=== PATIENT | female | born 1995 | race African-American/Black ===

== ENCOUNTER 2019-03-23 17:18 | Emergency (ER) | payer BC ==
[2019-03-23 17:51] VITALS: BP 117/73
--- NOTE | 2019-03-23 18:11 | UC ---
Lower Extremity/Ankle HPI - HPI Summary HPI Summary: BILATERAL LOWER LEG AND KNEE PAIN. PAIN FOR ABOUT 10 DAYS. PT WAS SEEN AT [facility] ON 03/20 AND WAS DX WITH BLOOM SPLINTS. LATER THAT DAY PT BUMPED HER LEFT HEEL ON A BED FRAME. PAIN HAS BEEN WORSE SINCE - History of Current Complaint Chief Complaint: UCLowerExtremity Stated Complaint: BILAT LEG PAIN/LEFT ANKLE PAIN Time Seen by Provider: 03/23/19 17:29 Hx Obtained From: Patient Hx Last Menstrual Period: 03/20/19 ?: No Onset/Duration: Sudden Onset, Lasting Weeks Severity Initially: Severe Severity Currently: Severe Pain Intensity: 12 Aggravating Factor(s): Standing, Ambulation Alleviating Factor(s): Rest Able to Bear Weight: Yes - Allergies/Home Medications Allergies/Adverse Reactions: Allergies Allergy/AdvReac Type Severity Reaction Status Date / Time No Known Allergies Allergy Verified 03/23/19 17:32 Home Medications: Home Medications Albuterol HFA INHALER* [Ventolin HFA Inhaler*] 2 puff INH Q4H PRN 03/23/19 [ History Confirmed 03/23/19] Divalproex Sodium [Depakote ER] 500 mg PO DAILY 03/23/19 [History Confirmed ] Ibuprofen TAB* [Advil TAB*] 400 mg PO Q6H PRN 03/23/19 [History Confirmed ] Norgestrel-Ethinyl Estradiol [[id number] Tablet] 1 each PO DAILY 03/23/19 [ History Confirmed 03/23/19] Propranolol TAB* [Inderal TAB*] 20 mg PO QID PRN 03/23/19 [History Confirmed ] Sertraline* [Zoloft*] 100 mg PO DAILY 03/23/19 [History Confirmed 03/23/19] PMH/Surg Hx/FS Hx/Imm Hx - Surgical History Surgical History: Yes Surgery Procedure, Year, and Place: T&A - Social History Alcohol Use: Occasionally Substance Use Type: Marijuana Smoking Status (MU): Never Smoked Tobacco Physical Exam Vital Signs: Initial Vital Signs Temp 99 F 03/23/19 17:38 Pulse 72 03/23/19 17:38 Resp 18 03/23/19 17:38 BP 117/73 03/23/19 17:38 Pulse Ox 100 03/23/19 17:38 Lower Extremity Course/Dx - Course Course Of Treatment: hx obtained, exam performed ,meds reviewed, xray wet read is negative, educated on stretching and care f bloom splints, and contusions - Differential Dx/Diagnosis Differential Diagnosis/HQI/PQRI: Contusion, Sprain, Strain Provider Diagnosis: Anterior bloom splints, Contusion of ankle or foot, left Discharge - Sign-Out/Discharge Documenting (check all that apply): Patient Departure All imaging exams completed and their final reports reviewed: No Studies - Discharge Plan Condition: Stable Disposition: HOME Patient Education Materials: Bloom Splints (ED) Referrals: Lino Atkins MD [Primary Care Provider] - Additional Instructions: 1. Heat, soak in epsom salts, stretch the front of your legs daily 2. You can use ibuprofen or aleve ( naproxen sodium) for pain and inflammation of your legs. 3. FOllow up as needed. - Billing Disposition and Condition Condition: STABLE Disposition: Home
== END 2019-03-23 18:59 | disposition home or self-care (01) ==
LOC: UCCORT 17:18
DX: S86.891A Other injury of other muscle(s) and tendon(s) at lower leg level, right leg, initial encounter (principal); S86.892A Other injury of other muscle(s) and tendon(s) at lower leg level, left leg, initial encounter; X58.XXXA Exposure to other specified factors, initial encounter; Y92.9 Unspecified place or not applicable; S90.02XA Contusion of left ankle, initial encounter; S90.32XA Contusion of left foot, initial encounter; W22.03XA Walked into furniture, initial encounter
CPT/HCPCS: 99201; G0463

== ENCOUNTER 2019-04-21 09:30 | Emergency (ER) | payer BC ==
[2019-04-21 09:48] VITALS: BP 129/57
--- NOTE | 2019-04-21 10:07 | UC ---
Ear Complaint HPI - HPI Summary HPI Summary: 24 year old female presents with left ear pain and drainage over the past two days. She notes pain radiating to her anterior auricular region. Denies associated fever chills nor sweats. Has had some dizziness, no n/ v/d. No uri symptoms nor exacerbation of her asthma. - History of Current Complaint Chief Complaint: UCEar Stated Complaint: RIGHT EAR CONCERN Time Seen by Provider: 04/21/19 09:46 Hx Obtained From: Patient Hx Last Menstrual Period: current ?: No Onset/Duration: Sudden Onset, Lasting Days - 2 Pain Intensity: 9 - Allergies/Home Medications Allergies/Adverse Reactions: Allergies Allergy/AdvReac Type Severity Reaction Status Date / Time No Known Allergies Allergy Verified 04/21/19 09:44 PMH/Surg Hx/FS Hx/Imm Hx Previously Healthy: Yes Respiratory History: Asthma - well controlled, uses albuterol prn, last time ~ 10 days ago. Psychological History: Depression - following with outpatient mental health, states symptoms are well controlled at this time. - Surgical History Surgical History: Yes Surgery Procedure, Year, and Place: T&A - Family History Known Family History: Positive: Hypertension Family History: mother with Phillips's Anema. Siblings with Asthma. - Social History Alcohol Use: Occasionally Substance Use Type: Marijuana Substance Use Comment - Amount & Last Used: every other day Smoking Status (MU): Never Smoked Tobacco Review of Systems All Other Systems Reviewed And Are Negative: Yes Constitutional: Positive: Negative Skin: Positive: Negative Eyes: Positive: Negative ENT: Positive: Other - Right ear pain, see HPI. Respiratory: Positive: Negative Cardiovascular: Positive: Negative Gastrointestinal: Positive: Negative Genitourinary: Positive: Negative Motor: Positive: Negative Neurovascular: Positive: Negative Musculoskeletal: Positive: Negative Neurological: Positive: Other - Dizziness Psychological: Positive: Depressed - being treated, denies si nor hi. Physical Exam Triage Information Reviewed: Yes Appearance: Well-Appearing Vital Signs: Initial Vital Signs Temp 97.8 F 04/21/19 09:45 Pulse 81 04/21/19 09:45 Resp 16 04/21/19 09:45 BP 129/57 04/21/19 09:45 Pulse Ox 100 04/21/19 09:45 Vital Signs Reviewed: Yes Eye Exam: Normal ENT: Positive: TMs normal, Other - Left ear canal normal. Right ear canal swollen with clear discharge. Tenderness of right pinna with retraction. Mild tenderness left anterior auicular region to palpation. Neck: Positive: Supple, Nontender, No Lymphadenopathy Respiratory: Positive: Lungs clear, Normal breath sounds, No respiratory distress Cardiovascular: Positive: RRR, No Murmur Abdominal Exam: Normal Ear Complaint Course/Dx - Course Course Of Treatment: Findings consistent with right otitis externa, no visible TM rupture on exam. - Differential Dx/Diagnosis Provider Diagnosis: Otitis externa Discharge - Sign-Out/Discharge Documenting (check all that apply): Patient Departure All imaging exams completed and their final reports reviewed: No Studies - Discharge Plan Condition: Stable Disposition: HOME Prescriptions: Ciproflox/Dexameth OTIC.SUSP* [Ciprodex OTIC.SUSP*] 4 drop RIGHT EAR BID 7 Days #1 btl Patient Education Materials: Otitis Externa (ED) Referrals: Lino Atkins MD [Primary Care Provider] - Additional Instructions: Use ear drops as directed. May use over the counter ibuprofen as needed for ear pain. Follow-up with Primary Care Provider or Urgent Care if symptoms persist or worsen. - Billing Disposition and Condition Condition: STABLE Disposition: Home
== END 2019-04-21 10:11 | disposition home or self-care (01) ==
LOC: UCCORT 09:30
DX: H60.92 Unspecified otitis externa, left ear (principal)
CPT/HCPCS: 99212; G0463

== ENCOUNTER 2019-09-15 14:02 | Emergency (ER) | payer BC ==
--- OUTSIDE RECORDS SUMMARY | 2019-09-15 14:08 | XMS REPORT | Summary of Care ---
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 31-JUL-2018 18:32, : NO SIGNIFICANT CHANGE WAS FOUND : Confirmed by Griffin Chen ([id number]) on 08/31/2019 10:29:21 : AM Performing Organization Address City/State/Zipcode Phone Number [facility] EKG 1ED EKG Interpretation (08/30/2019 6:44 PM EST) Narrative Performed At Charles Nuñez MD EXTERNAL NON-INTERFACED LAB 08/31/2019 10:30 AM 1ED EKG Interpretation Date/Time: 08/30/2019 6:58 PM Performed by: Charles Nuñez MD Authorized by: Charles Nuñez MD ECG reviewed by ED Physician in the absence of a clothing supervisor: yes Previous ECG: Previous ECG: Compared to current Comparison ECG info: aug 13 Similarity: No change Interpretation: Interpretation: normal Rate: ECG rate: 88 ECG rate assessment: normal Rhythm: Rhythm: sinus rhythm Ectopy: Ectopy: none QRS: QRS axis: Normal QRS intervals: Normal Conduction: Conduction: normal ST segments: ST segments: Normal T waves: T waves: normal Performing Organization Address [facility] Phone Number EXTERNAL NON-INTERFACED LAB Comprehensive Metabolic Panel (08/30/2019 6:40 PM EST) Albumin 4.2 3.5 - 5.2 g/dL [facility] at Bilirubin, Total 0.3 <1.2 mg/dL [facility] Calcium 9.3 8.6 - 10.0 mg/dL [facility] Chloride 104 98 - 107 mmol/L [facility] Creatinine 0.71 0.50 - 0.90 [facility] mg/dL [facility] at Glucose 91 70 - 140 mg/dL [facility] Alkaline Phosphatase 57 35 - 104 U/L [facility] Potassium 3.9 3.4 - 5.1 mmol/L [facility] Total Protein 7.2 6.4 - 8.3 g/dL [facility] Sodium 136 136 - 145 mmol/L [facility] AST/SGO 21 <32 U/L [facility] Blood Urea Nitrogen 13 6 - 20 mg/dL [facility] Osmolality, Lionel 282 275 - 300 [facility] mosm/kg [facility] at BUN/Cre Ratio 18 [facility] Bicarbonate 23 22 - 29 mmol/L [facility] ALT/SGP 20 <33 U/L [facility] Anion Gap 9 8 - 15 mmol/L [facility] A/G Ratio 1.0 [facility] GFR Non >90 >60 [facility] Venezuelan 2008 CDK-EPI mL/min/1.73m2 Univ at GFR >90 >60 [facility] 2009 CKD-EPI mL/min/1.73m2 Univ at Specimen Plasma Performing Organization Address [facility] Phone Number [facility] AT [place] [address] [place] [address] [phone] [facility] [address] [address] TSH (08/30/2019 6:40 PM EST) TSH 1.020 0.270 - 4.200 u[IU]/mL [facility] Specimen Plasma Performing Organization Address City/[facility] Phone Number [facility] AT [address] [address] [phone] [facility] [address] [address] Toxicology Hold (08/30/2019 6:40 PM EST) Toxicology hold TOXT sample [facility] received in [facility] Univ at Specimen Plasma Performing Organization Address City/[facility] Phone Number [facility] AT [address] [address] [phone] [facility] [address] [address] T4 (08/30/2019 6:40 PM EST) Thyroxine 6.0 4.5 - 11.7 ug/dl [facility] Specimen Plasma Performing Organization Address City/[facility] Phone Number [facility] AT [address] [address] [phone] [facility] at [address] [address] Salicylate level (08/30/2019 6:40 PM EST) Salicylate <1.0 (L) 3.0 - 30.0 mg/dL [facility] Specimen Plasma Performing Organization Address City/[facility] Phone Number [facility] AT [address] [address] [facility] [address] [address] Ethyl Alcohol Level (08/30/2019 6:40 PM EST) Ethyl Alcohol Negative Negative g/dl [facility] at Specimen Plasma Performing Organization Address [facility] Phone Number [facility] AT [address] [address] [facility] [address] [address] CBC and Differential (08/30/2019 6:40 PM EST) White Blood Cell 6.9 4 - 10 [facility] 10*3/uL Medical Univ at Red Blood Cell 5.00 4.1 - 5.3 [facility] 10*6/uL Medical Univ at Hemoglobin 11.5 11.5 - 15.5 [facility] g/dL Medical Univ at Hematocrit 35.8 (L) 36 - 45 % [facility] at Mean Cell Volume 71.6 (L) 80 - 96 fL [facility] Mean Cell Hemoglobin 23.0 (L) 27 - 33 pg [facility] Mean Cell Hgb Conc 32.1 32.0 - 36.0 [facility] g/dL [facility] at Red Cell Dist Width 15.4 (H) 11.5 - 14.5 % [facility] Platelet Count 400 150 - 400 [facility] 10*3/uL Medical [facility] at Differential Type Automated Diff [facility] Neutrophil 53 % [facility] Lymphocyte 36 % [facility] Monocyte 9 % [facility] Eosinophil 1 % [facility] Basophil 1 % [facility] Abs Neutrophil 3.75 1.8 - 7.0 [facility] 10*3/uL Medical Univ at Abs Lymphocyte 2.49 1.2 - 4.0 [facility] 10*3/uL Medical Univ at Abs Monocyte 0.59 0 - 0.8 [facility] 10*3/uL Medical Univ at Abs Eosinophil 0.06 0 - 0.5 [facility] 10*3/uL Medical Univ at Abs Basophil 0.03 0 - 0.2 [facility] 10*3/uL Medical Univ at Nucleated Red Blood 0 0 - 0 [facility] Cells /100{WBCs} Medical [facility] at Specimen EDTA Whole Blood Performing Organization Address City/State/Zipcode Phone Number [facility] AT [facility] [address] [place] [address] [facility] [address] [place] [address] Acetaminophen, Random (08/30/2019 6:40 PM EST) Acetaminophen, Random 11.9 10.0 - 30.0 [facility] ug/mL Univ at CG Specimen Plasma Performing Organization Address City/State/Zipcode Phone Number [facility] AT [facility] [address] [place] [address] [phone] [facility] at CG [address] [place] [address] documented in this encounter Visit Diagnoses Diagnosis Depression, unspecified depression type Class 3 severe obesity due to excess calories without serious comorbidity with body mass index (BMI) of 50.0 to 59.9 in adult Asthma without acute exacerbation Benign essential HTN Essential hypertension, benign documented in this encounter Administered Medications Medication Order MAR Action Action Date Dose Rate Site acetaminophen (TYLENOL) tablet Given 09/02/2019 9:17 PM EST 650 mg 650 mg 650 mg, Oral, Every 6 hours PRN, Mild Pain (Pain Scale Score 1-3), Starting 08/31/19 at 0056, For 30 days, Maximum daily dose of acetaminophen is 3,000 mg from all sources in 24 hours., Given 08/31/2019 8:05 AM EST 650 mg Alum & Mag Hydroxide-Simeth (MAALOX PLUS) 200-200-20 MG/5ML suspension 30 mL 30 mL, Oral, Every 6 hours PRN, Indigestion, Starting 08/31/19 at 0056, For 30 days divalproex (DEPAKOTE) 24 hr tablet 500 mg Given 09/03/2019 9:35 AM EST 500 mg 500 mg, Oral, Daily Standard, First dose on 09/02/19 at 0900, For 30 days, Do not crush or chew, Given 09/02/2019 9:44 AM EST 500 mg hydrOXYzine (ATARAX) tablet 50 mg 50 mg, Oral, Every 6 hours PRN, Anxiety, Starting 08/31/19 at 0056, For 30 days ibuprofen (ADVIL,MOTRIN) tablet 400 mg Given 09/01/2019 8:47 PM EST 400 mg 400 mg, Oral, Every 8 hours PRN, Moderate Pain (Pain Scale Score 4-6), Starting 09/01/19 at 1821, For 30 days, Take with food., magnesium hydroxide (MILK OF MAGNESIA) 400 MG/5ML suspension 15 mL 15 mL, Oral, Daily PRN, Constipation, Starting 08/31/19 at 0056, For 30 days , If serum creatinine > 2 notify provider before administering., propranolol (INDERAL) tablet 20 mg Given 09/01/2019 8:47 PM EST 20 mg 20 mg, Oral, 2 Times Daily, First dose on 08/31/19 at 0900, For 30 days, Check vital signs before administering, Given 08/31/2019 9:06 PM EST 20 mg sertraline (ZOLOFT) tablet 100 mg Given 09/03/2019 9:35 AM EST 100 mg 100 mg, Oral, Daily Standard, First dose on 08/31/19 at 0900, For 30 days Given 09/02/2019 9:44 AM EST 100 mg Given 09/01/2019 7:41 AM EST 100 mg trazodone (DESYREL) tablet 50 mg 50 mg, Oral, Nightly PRN, Sleep, Starting 08/31/19 at 0056, For 30 days Medication Order MAR Action Action Date Dose Rate Site influenza vac split quad Given 08/31/2019 8:03 AM 0.5 mLs Left Deltoid (FLUARIX) injection 6 EST months and older 0.5 mL 0.5 mL, Intramuscular, Give Now, Starting 08/31/19 at 0900, For 1 dose documented in this encounter
--- OUTSIDE RECORDS SUMMARY | 2019-09-15 14:08 | XMS REPORT | Summary of Care ---
:1995 Author Organization [facility] Address [address] [place] [address] Care Team Providers Name Role Phone iLno Atkins MD Primary Care Provider Reason for Visit Reason Comments New Patient Encounter Details Date Type Department Care Team Description 09/12/2019 Office Visit Psychiatry Faculty Meri Real NP [facility], [id number] [place] [phone] Allergies Active Allergy Reactions Severity Noted Date Comments Hlhj-K1-Uuucqdmb-Vinegar Medium 09/12/2019 documented as of this encounter (statuses as of 09/13/2019) Medications Medication Sig Dispensed Refills Start Date End Date Status ALBUTEROL IN Inhale into the 0 Active lungs. ibuprofen Take 200 mg by 0 Active (ADVIL,MOTRIN) 200 MG mouth every 6 tablet (six) hours as needed for Pain. fluticasone (FLONASE) 1 spray by Nasal 0 Active 50 MCG/ACT nasal spray route daily. imbanikz-gnasoudhkj-za Four times 0 Active lymyxin (NEOSPORIN) daily. ophthalmic ointment Fexofenadine HCl Take by mouth. 0 Active (MUCINEX ALLERGY PO) norgestrel-ethinyl Take 1 tablet by 28 tablet 5 01/02/2019 Active estradiol (LO/OVRAL) mouth daily 0.3-30 MG-MCG per tablet divalproex (DEPAKOTE) Take 500 mg by 0 Active 500 MG EC tablet mouth daily propranolol (INDERAL) Take 20 mg by 0 Active 20 MG tablet mouth as needed Sertraline HCl 50 MG Take 2 tablets 60 tablet 0 09/03/2019 10/03/2019 Active Oral Tablet (ZOLOFT) by mouth daily documented as of this encounter (statuses as of 09/13/2019) Active Problems Problem Noted Date Post traumatic stress disorder (PTSD) 09/13/2019 Depression 09/02/2019 Class 3 severe obesity due to excess calories without serious comorbidity 03/2019 with body mass index (BMI) of 50.0 to 59.9 in adult Asthma without acute exacerbation 08/31/2019 Benign essential HTN 08/31/2019 Depression with suicidal ideation 08/30/2019 documented as of this encounter (statuses as of 09/13/2019) Immunizations Name Administration Dates Next Due Influenza Quad IM Pres Free (0.5 mL dose) 08/31/2019 documented as of this encounter Social History Tobacco Use Types Packs/Day Years Used Date Never Smoker 0 Smokeless Tobacco: Never Used Comments: marijuana Alcohol Use Drinks/Week oz/Week Comments Yes 3x a month socially Social Isolation Answer Date Recorded In a typical week, how many times do you talk on the Twice a week 08/31/2019 phone with family, friends, or neighbors? How often do you get together with friends or relatives? Never 08/31/2019 How often do you attend mormon or anabaptist services? Never 08/31/2019 Do you belong to any clubs or organizations such as Yes 08/31/2019 mormon groups, unions, fraternal or athletic groups, or [...] Sign Reading Time Taken Comments Blood Pressure 134/69 09/12/2019 2:46 PM EST Pulse 93 09/12/2019 2:46 PM EST Temperature - - Respiratory Rate - - Oxygen Saturation 98% 09/12/2019 2:46 PM EST Inhaled Oxygen Concentration - - Weight 127 kg (280 lb) 09/12/2019 2:46 PM EST Height 160 cm (5' 3") 09/12/2019 2:46 PM EST Body Mass Index 49.6 09/12/2019 2:46 PM EST documented in this encounter Plan of Treatment Date Type Specialty Care Team Description 10/03/2019 Office Visit Psychiatry Meri Real, [employer] [address] [place] [address] [phone] Health Maintenance Due Date Last Done Comments [...] this topic documented as of this encounter Results Not on filedocumented in this encounter Visit Diagnoses Diagnosis Moderate episode of recurrent major depressive disorder - Primary Anxiety Anxiety state, unspecified Post traumatic stress disorder (PTSD) Posttraumatic stress disorder documented in this encounter
[2019-09-15 14:17] VITALS: BP 127/49
--- NOTE | 2019-09-15 14:39 | UC ---
Lower Extremity/Ankle HPI - HPI Summary HPI Summary: 24-year-old female presents with complaints of nontraumatic left foot pain for the past 3-4 days. Pain is located at the plantar and lateral aspect of her left foot. States no pain at rest however has pain with any type of walking or weightbearing. No alleviating factors and has not tried any vqgt-asp-ppxmzts analgesics. Denies erythema, ecchymosis, edema, lesions, numbness, or tingling. - History of Current Complaint Chief Complaint: UCLowerExtremity Stated Complaint: LEFT FOOT PAIN Time Seen by Provider: 09/15/19 14:04 Hx Obtained From: Patient Hx Last Menstrual Period: 08/29/19 Pain Intensity: 4 - Allergies/Home Medications Allergies/Adverse Reactions: Allergies Allergy/AdvReac Type Severity Reaction Status Date / Time No Known Allergies Allergy Verified 09/15/19 14:16 PMH/Surg Hx/FS Hx/Imm Hx Cardiovascular History: Hypertension Respiratory History: Asthma Psychological History: Depression - Surgical History Surgical History: Yes Surgery Procedure, Year, and Place: T&A, ~2003, [place] - Family History Known Family History: Positive: Hypertension Family History: mother with Phillips's Anema. Siblings with Asthma. - Social History Lives: With Family Alcohol Use: Occasionally Substance Use Type: Marijuana Substance Use Comment - Amount & Last Used: "every few days" Smoking Status (MU): Never Smoked Tobacco Review of Systems All Other Systems Reviewed And Are Negative: Yes Constitutional: Negative: Fever, Chills Skin: Negative: Rash, Bruising Respiratory: Positive: Negative Cardiovascular: Positive: Negative Gastrointestinal: Positive: Negative Genitourinary: Positive: Negative Motor: Negative: Weakness Neurovascular: Negative: Decreased Sensation Musculoskeletal: Positive: Other: - See HPI Neurological: Positive: Negative Is Patient Immunocompromised?: No Physical Exam - Summary Physical Exam Summary: GENERAL APPEARANCE: Alert and cooperative obese adult female who appears to be in no acute distress. CARDIAC: Normal S1 and S2. No S3, S4 or murmurs. Rhythm is regular. There is no peripheral edema, cyanosis or pallor. Extremities are warm and well perfused. Capillary refill is less than 2 seconds. Peripheral pulses intact. LUNGS: Clear to auscultation without rales, rhonchi, wheezing or diminished breath sounds. ABDOMEN: Positive bowel sounds. Soft, nondistended, nontender. No guarding or rebound. No masses or hepatosplenomegally. MUSKULOSKELETAL: ROM intact to all extremities. No joint erythema or tenderness. Normal muscular development. Limping gait. EXTREMITIES: Tenderness along the plantar fascia of the left plantar foot without erythema, ecchymosis, or edema. Circulation and sensation intact. SKIN: Skin normal color, texture and turgor with no lesions or eruptions. Triage Information Reviewed: Yes Vital Signs: Initial Vital Signs Temp 99.4 F 09/15/19 14:13 Pulse 104 09/15/19 14:13 Resp 20 09/15/19 14:13 BP 127/49 09/15/19 14:13 Pulse Ox 100 09/15/19 14:13 Vital Signs Reviewed: Yes Lower Extremity Course/Dx - Course Course Of Treatment: 24-year-old female presents with complaints of nontraumatic left foot pain for the past 3-4 days. Pain is located at the plantar and lateral aspect of her left foot. States no pain at rest however has pain with any type of walking or weightbearing. No alleviating factors and has not tried any ysdw-zys-agsmdoy analgesics. Denies erythema, ecchymosis, edema, lesions, numbness, or tingling. Afebrile. Vital signs stable. Patient had tenderness along the plantar fascia of the left plantar foot without erythema, ecchymosis, or edema is to the plantar fasciitis. Recommending conservative treatment with NSAIDs, arch support, cold therapy, and stretching exercises. She is to follow-up with her primary care provider in one week if symptoms are not improving. Anticipatory guidance and warning symptoms were reviewed with the patient. Verbalizes understanding and agrees with plan of care. - Differential Dx/Diagnosis Differential Diagnosis/HQI/PQRI: Gout, Sprain, Tendonitis Provider Diagnosis: Plantar fasciitis of left foot Discharge ED - Sign-Out/Discharge Documenting (check all that apply): Patient Departure All imaging exams completed and their final reports reviewed: No Studies - Discharge Plan Condition: Stable Disposition: HOME Prescriptions: Naproxen [Naproxen 500 mg tab] 500 mg PO Q12HR #30 tablet Patient Education Materials: Plantar Fasciitis (ED), Plantar Fasciitis Exercises (ED) Referrals: Lino Atkins MD [Primary Care Provider] - 7 Days (If no improvement in symptoms.) Additional Instructions: Your history and exam are consistent with a condition called plantar fasciitis. Take naproxen 500 mg 1 tab twice a day with food for the next 5-7 days then may take every 12 hours as needed for pain. Apply ice to the affected area for 15-20 minutes at least 3-4 times a day. Use an arch support insert in a pair of well fitted shoes. Use the stretching exercises that were provided to you. Follow up with your primary care provider in 7 days especially if there is no improvement in symptoms. Seek immediate medical attention in the emergency room if you have severe pain not managed with pain medication, you are unable to walk or bear weight, develop numbness or tingling in the foot or toes, or have any worsening of symptoms. - Billing Disposition and Condition Condition: STABLE Disposition: Home
== END 2019-09-15 14:49 | disposition home or self-care (01) ==
LOC: UCCORT 14:02
DX: M72.2 Plantar fascial fibromatosis (principal); J45.909 Unspecified asthma, uncomplicated; I10 Essential (primary) hypertension
CPT/HCPCS: 99212; G0463